=== PATIENT | female | born 1980 | race Two or more races ===

== ENCOUNTER 2017-07-17 08:50 | Emergency (ER) | payer SELFPAY ==
[~2017-07-17] VITALS: Ht 170.2 cm; Wt 72.6 kg
[2017-07-17 09:27] LABS: BILIRUBIN,URINE NEGATIVE (NEG); GLUCOSE,URINE NEGATIVE (NEG); NITRITE,URINE NEGATIVE (NEG); PH,URINE 5.5; PROTEIN,URINE NEGATIVE (NEG-TRACE); UROBILINOGEN,URINE 0.2 mg/dL (0.2 mg/dL)
[2017-07-17 09:34] LABS: SQUAMOUS EPITHELIAL CELL,UR MANY /LPF
[2017-07-17 09:36] LABS: BACTERIA,URINE MODERATE /HPF (0-FEW); RBC,URINE 0 /HPF (0-2)
[2017-07-17 09:37] LABS: NEG OBC UR NEG; POS OBC UR POS
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
--- NOTE | 2017-07-17 09:58 | RAD ---
Indication pelvic pain and cramping. Early obstetrical ultrasound examination was performed. No prior imaging is available. The uterus measures approximately 14 x 9 x 9 cm. There is a viable IUP. The crown-rump length of 5.1 cm is compatible with a gestational age of approximately 11 weeks 5 days. By sonographic analysis the expected date of confinement is 01/30/2013. A heart rate of 152 was documented. The placenta is positioned predominantly anterior. The cervical length is unremarkable at approximately 4.2 cm. The ovaries appeared normal. IMPRESSION: Single viable intrauterine fetus of approximately 11 weeks 5 days gestation
[2017-07-17 10:24] LABS: CALCIUM 8.4 mg/dL (8.5-10.1); CREATININE 0.7 mg/dL (0.6-1.0); GFR 95.2; POTASSIUM 3.9 mmol/L (3.5-5.1)
[2017-07-17 10:29] LABS: BASO % 0 % (0-3); EOS % 1 % (0-3); HEMATOCRIT 34.1 % (36.0-47.0); HEMOGLOBIN 11.8 g/dL (12.0-15.5); LYMPH # 1.9 x10^3/uL (1.0-4.8); LYMPH % 18 % (24-48); MEAN CORPUSCULAR HEMOGLOBIN 32 pg (25-35); MEAN CORPUSCULAR HGB CONC 35 g/dL (31-37); MEAN CORPUSCULAR VOLUME 92 fL (79-100); MONO % 6 % (0-9); NEUT % 75 % (31-73); PLATELET COUNT 215 x10^3/uL (140-400); RED BLOOD COUNT 3.69 x10^6/uL (3.50-5.40); RED CELL DISTRIBUTION WIDTH 13.3 % (11.5-14.5); WHITE BLOOD COUNT 10.3 x10^3/uL (4.0-11.0)
[2017-07-17 10:30] LABS: ALBUMIN 2.8 g/dL (3.4-5.0); ALBUMIN/GLOBULIN RATIO 0.8 (1.0-1.7); TOTAL BILIRUBIN 0.3 mg/dL (0.2-1.0); TOTAL PROTEIN 6.4 g/dL (6.4-8.2)
[2017-07-17] MEDS ORDERED: CEPH500T PO (11:39)
[2017-07-17 11:40] VITALS: BP 116/69
== END 2017-07-17 11:47 | disposition home or self-care (01) ==
LOC: ER 08:50
DX: O23.41 Unspecified infection of urinary tract in pregnancy, first trimester (principal); O16.1 Unspecified maternal hypertension, first trimester; Z3A.11 11 weeks gestation of pregnancy; V43.52XA Car driver injured in collision with other type car in traffic accident, initial encounter; Y93.I9 Activity, other involving external motion; Y92.410 Unspecified street and highway as the place of occurrence of the external cause; Y99.8 Other external cause status
CPT/HCPCS: 36415; 76801; 80053; 81001; 81025; 83690; 84702; 85025; 86850; 86900; 86901; 87086; 87491; 87591; 99285; Q0111

== ENCOUNTER 2019-09-27 17:41 | Emergency (ER) | payer SELFPAY ==
[~2019-09-27] VITALS: Ht 170.2 cm; Wt 72.6 kg
[~2019-09-27 17:41] MED LIST: CEPH500T PO
[2019-09-27] MEDS ORDERED: ASPIRIN CHEWABLE 81 MG TABLET. PO ONE (18:00)
[2019-09-27 18:04] LABS: BASO % 0 % (0-3); EOS % 0 % (0-3); HEMATOCRIT 40.6 % (36.0-47.0); HEMOGLOBIN 13.3 g/dL (12.0-15.5); LYMPH % 17 % (24-48); MEAN CORPUSCULAR HEMOGLOBIN 28 pg (25-35); MEAN CORPUSCULAR HGB CONC 33 g/dL (31-37); MEAN CORPUSCULAR VOLUME 85 fL (79-100); MONO # 0.5 x10^3/uL (0.0-1.1); MONO % 5 % (0-9); NEUT # 9.4 x10^3/uL (1.8-7.7); NEUT % 79 % (31-73); PLATELET COUNT 340 x10^3/uL (140-400); RED BLOOD COUNT 4.76 x10^6/uL (3.50-5.40); RED CELL DISTRIBUTION WIDTH 14.5 % (11.5-14.5); WHITE BLOOD COUNT 11.9 x10^3/uL (4.0-11.0)
--- NOTE | 2019-09-27 18:04 | PHYS DOC ---
Past Medical History Past Medical History: Hypertension (LOCO MCGUIRE) Past Surgical History: Other Additional Past Surgical Histo: D&C, lap band (LOCO MCGUIRE) Alcohol Use: None Drug Use: None (LOCO MCGUIRE) Attending Signature I have participated in the care of this patient and I have reviewed and agree with all pertinent clinical information above including history, exam, and recommendations. (TOMEKA GIL MD) Adult General Chief Complaint Chief Complaint: CHEST PAIN HPI HPI Patient is a 39 year old F who reports early this morning she noticed L sided chest pain that seemed to resolve and then it came back around lunchtime. The pain is upper left chest and into her L neck. Pt is hyperventilating on arrival. She states she has mild SOB and nausea. Pt denies any history of CAD and denies PE/DVT hx. She does report a long road trip to [place] on . She has no other risk factors. Pt does have hx of HTN and is noted to be hypertensive on arrival. She reports she has been compliant with her home BP medication. Pt is also noted to be very anxious and is hyperventilating. She reports feeling tingly all over and discussed with her to slow down her breathing. (LOCO MCGUIRE) Review of Systems Review of Systems Constitutional: Denies fever or chills HENT: Denies nasal congestion or sore throat Respiratory: Denies cough. Reports SOB Cardiovascular: Reports chest pain GI: Denies abdominal pain, vomiting, bloody stools or diarrhea. Reports nausea. Musculoskeletal: Denies back pain or joint pain Integument: Denies rash or skin lesions Neurologic: Denies headache, focal weakness. Reports tingling all over. All other systems were reviewed and found to be within normal limits, except as documented in this note. (LOCO MCGUIRE) Current Medications Current Medications Current Medications Medications (Trade) Dose Ordered Sig/Shadia Start Time Stop Time Status Last Admin Dose Admin Aspirin (Children'S Aspirin) 324 mg 1X ONCE 09/27/19 18:00 09/27/19 18:06 DC 09/27/19 18:05 324 MG Ketorolac Tromethamine (Toradol 30mg Vial) 30 mg 1X ONCE 09/27/19 19:45 09/27/19 19:48 DC 09/27/19 19:50 30 MG Lorazepam (Ativan Inj) 0.5 mg 1X ONCE 09/27/19 19:45 09/27/19 19:48 DC 09/27/19 19:51 0.5 MG Ondansetron HCl (Zofran) 4 mg 1X ONCE 09/27/19 19:00 09/27/19 19:01 DC 09/27/19 19:00 4 MG (TOMEKA GIL MD) Allergies Allergies Allergies Coded Allergies Type Severity Reaction Last Updated Verified No Known Drug Allergies 07/17/17 No (TOMEKA GIL MD) Physical Exam Physical Exam Constitutional: Well developed, well nourished, no acute distress. Appears anxious and uncomfortable. HENT: Normocephalic, atraumatic, bilateral external ears normal, oropharynx moist, no oral exudate Neck: Normal range of motion, no tenderness, supple, no stridor. Cardiovascular:Heart rate regular rhythm, no murmur Lungs & Thorax: Bilateral breath sounds clear to auscultation Abdomen: Bowel sounds normal, soft, no tenderness, no masses, no pulsatile masses. Skin: Warm, dry, no erythema, no rash. Back: No tenderness, no CVA tenderness. Extremities: No tenderness, no cyanosis, no clubbing, ROM intact, no edema. Neurologic: Alert and oriented X 3, normal motor function, normal sensory function, no focal deficits noted. Psychologic: Affect normal, anxious, hyperventilating during exam (LOCO MCGUIRE) Current Patient Data Vital Signs Vital Signs Date Time Temp Pulse Resp B/P (MAP) Pulse Ox O2 Delivery O2 Flow Rate FiO2 09/27/19 21:02 72 14 143/93 (110) 98 Room Air 09/27/19 17:45 97.8 97.8 (TOMEKA GIL MD) Lab Values Laboratory Tests Test 09/27/19 17:50 09/27/19 18:29 White Blood Count 11.9 x10^3/uL (4.0-11.0) H Red Blood Count 4.76 x10^6/uL (3.50-5.40) Hemoglobin 13.3 g/dL (12.0-15.5) Hematocrit 40.6 % (36.0-47.0) Mean Corpuscular Volume 85 fL (79-100) Mean Corpuscular Hemoglobin 28 pg (25-35) Mean Corpuscular Hemoglobin Concent 33 g/dL (31-37) Red Cell Distribution Width 14.5 % (11.5-14.5) Platelet Count 340 x10^3/uL (140-400) Neutrophils (%) (Auto) 79 % (31-73) H Lymphocytes (%) (Auto) 17 % (24-48) L Monocytes (%) (Auto) 5 % (0-9) Eosinophils (%) (Auto) 0 % (0-3) Basophils (%) (Auto) 0 % (0-3) Neutrophils # (Auto) 9.4 x10^3/uL (1.8-7.7) H Lymphocytes # (Auto) 2.0 x10^3/uL (1.0-4.8) Monocytes # (Auto) 0.5 x10^3/uL (0.0-1.1) Eosinophils # (Auto) 0.0 x10^3/uL (0.0-0.7) Basophils # (Auto) 0.0 x10^3/uL (0.0-0.2) Prothrombin Time 12.8 SEC (11.7-14.0) Prothrombin Time INR 1.0 (0.8-1.1) D-Dimer (Claudia) 0.29 ug/mlFEU (0.00-0.50) Urine Collection Type Unknown Urine Color Yellow Urine Clarity Clear Urine pH 7.5 Urine Specific [place] 1.010 Urine Protein Negative mg/dL (NEG-TRACE) Urine Glucose (UA) Negative mg/dL (NEG) Urine Ketones (Stick) Negative mg/dL (NEG) Urine Blood Negative (NEG) Urine Nitrite Negative (NEG) Urine Bilirubin Negative (NEG) Urine Urobilinogen Dipstick 0.2 mg/dL (0.2 mg/dL) Urine Leukocyte Esterase Negative (NEG) Urine RBC 0 /HPF (0-2) Urine WBC Rare /HPF (0-4) Urine Squamous Epithelial Cells Occ /LPF Urine Bacteria Few /HPF (0-FEW) Sodium Level 135 mmol/L (136-145) L Potassium Level 3.7 mmol/L (3.5-5.1) Chloride Level 96 mmol/L (98-107) L Carbon Dioxide Level 23 mmol/L (21-32) Anion Gap 16 (6-14) H Blood Urea Nitrogen 9 mg/dL (7-20) Creatinine 1.0 mg/dL (0.6-1.0) Estimated GFR (Cockcroft-Gault) 62.4 BUN/Creatinine Ratio 9 (6-20) Glucose Level 137 mg/dL (70-99) H Calcium Level 9.7 mg/dL (8.5-10.1) Magnesium Level 2.0 mg/dL (1.8-2.4) Total Bilirubin 0.4 mg/dL (0.2-1.0) Aspartate Amino Transferase (AST) 18 U/L (15-37) Alanine Aminotransferase (ALT) 12 U/L (14-59) L Alkaline Phosphatase 81 U/L (46-116) Creatine Kinase 82 U/L (26-192) Creatine Kinase MB (Mass) 1.0 ng/mL (0.0-3.6) Creatine Kinase MB Relative Index 1.2 % (0-4) Troponin I Quantitative < 0.017 ng/mL (0.000-0.055) TO-Jly-[id number]-Type Natriuretic Peptide 251 pg/mL (0-124) H Total Protein 8.8 g/dL (6.4-8.2) H Albumin 4.2 g/dL (3.4-5.0) Albumin/Globulin Ratio 0.9 (1.0-1.7) L Lipase 224 U/L (73-393) POC Urine HCG, Qualitative Hcg negative (Negative) Laboratory Tests 09/27/19 17:50 Laboratory Tests 09/27/19 17:50 (TOMEKA GIL MD) Lab Values Laboratory Tests Test 09/27/19 17:50 09/27/19 18:29 White Blood Count 11.9 x10^3/uL (4.0-11.0) H Red Blood Count 4.76 x10^6/uL (3.50-5.40) Hemoglobin 13.3 g/dL (12.0-15.5) Hematocrit 40.6 % (36.0-47.0) Mean Corpuscular Volume 85 fL (79-100) Mean Corpuscular Hemoglobin 28 pg (25-35) Mean Corpuscular Hemoglobin Concent 33 g/dL (31-37) Red Cell Distribution Width 14.5 % (11.5-14.5) Platelet Count 340 x10^3/uL (140-400) Neutrophils (%) (Auto) 79 % (31-73) H Lymphocytes (%) (Auto) 17 % (24-48) L Monocytes (%) (Auto) 5 % (0-9) Eosinophils (%) (Auto) 0 % (0-3) Basophils (%) (Auto) 0 % (0-3) Neutrophils # (Auto) 9.4 x10^3/uL (1.8-7.7) H Lymphocytes # (Auto) 2.0 x10^3/uL (1.0-4.8) Monocytes # (Auto) 0.5 x10^3/uL (0.0-1.1) Eosinophils # (Auto) 0.0 x10^3/uL (0.0-0.7) Basophils # (Auto) 0.0 x10^3/uL (0.0-0.2) Prothrombin Time 12.8 SEC (11.7-14.0) Prothrombin Time INR 1.0 (0.8-1.1) D-Dimer (Claudia) 0.29 ug/mlFEU (0.00-0.50) Urine Collection Type Unknown Urine Color Yellow Urine Clarity Clear Urine pH 7.5 Urine Specific [place] 1.010 Urine Protein Negative mg/dL (NEG-TRACE) Urine Glucose (UA) Negative mg/dL (NEG) Urine Ketones (Stick) Negative mg/dL (NEG) Urine Blood Negative (NEG) Urine Nitrite Negative (NEG) Urine Bilirubin Negative (NEG) Urine Urobilinogen Dipstick 0.2 mg/dL (0.2 mg/dL) Urine Leukocyte Esterase Negative (NEG) Urine RBC 0 /HPF (0-2) Urine WBC Rare /HPF (0-4) Urine Squamous Epithelial Cells Occ /LPF Urine Bacteria Few /HPF (0-FEW) Sodium Level 135 mmol/L (136-145) L Potassium Level 3.7 mmol/L (3.5-5.1) Chloride Level 96 mmol/L (98-107) L Carbon Dioxide Level 23 mmol/L (21-32) Anion Gap 16 (6-14) H Blood Urea Nitrogen 9 mg/dL (7-20) Creatinine 1.0 mg/dL (0.6-1.0) Estimated GFR (Cockcroft-Gault) 62.4 BUN/Creatinine Ratio 9 (6-20) Glucose Level 137 mg/dL (70-99) H Calcium Level 9.7 mg/dL (8.5-10.1) Magnesium Level 2.0 mg/dL (1.8-2.4) Total Bilirubin 0.4 mg/dL (0.2-1.0) Aspartate Amino Transferase (AST) 18 U/L (15-37) Alanine Aminotransferase (ALT) 12 U/L (14-59) L Alkaline Phosphatase 81 U/L (46-116) Creatine Kinase 82 U/L (26-192) Creatine Kinase MB (Mass) 1.0 ng/mL (0.0-3.6) Creatine Kinase MB Relative Index 1.2 % (0-4) Troponin I Quantitative < 0.017 ng/mL (0.000-0.055) GL-Xbb-K-Type Natriuretic Peptide 251 pg/mL (0-124) H Total Protein 8.8 g/dL (6.4-8.2) H Albumin 4.2 g/dL (3.4-5.0) Albumin/Globulin Ratio 0.9 (1.0-1.7) L Lipase 224 U/L (73-393) POC Urine HCG, Qualitative Hcg negative (Negative) Laboratory Tests 09/27/19 17:50 Laboratory Tests 09/27/19 17:50 (LOCO MCGUIRE) EKG EKG EKG: NSR, prolonged QT, pulse 97 bpm (LOCO MCGUIRE) Radiology/Procedures Radiology/Procedures [] (LOCO MCGUIRE) Course & Med Decision Making Course & Med Decision Making Pertinent Labs and Imaging studies reviewed. (See chart for details) Pt feeling better while in ER and primarily improved after Ativan. Discussed possible pleurisy or costochondritis. Cardiac tests and DDimer reassuring and this is after 7+ hours of pain. Discussed rest, close f/u with PCP and to return to ER if symptoms worsen at anytime. (LOCO MCGUIRE) Dragon Disclaimer Dragon Disclaimer This electronic medical record was generated, in whole or in part, using a voice recognition dictation system. (LOCO MCGUIRE) Departure Departure Impression: Primary Impression: Chest pain Additional Impressions: Anxiety Pleurisy Disposition: 01 HOME, SELF-CARE Condition: IMPROVED Referrals: NO PCP (PCP) Patient Instructions: Anxiety and Panic Attacks, [id number], Pleurisy, [id number] Additional Instructions: Your blood pressure was elevated today and this should be rechecked when you are feeling better. You should have a close f/u appointment with your doctor for recheck. Return to ER if symptoms worsen at anytime. Scripts Lorazepam (ATIVAN) 0.5 Mg Tablet 0.5 MG PO BID PRN for ANXIETY / AGITATION for 7 Days, #14 TAB Prov: LOCO MCGUIRE 09/27/19 Prednisone (PREDNISONE) 20 Mg Tablet 1 TAB PO BID for 5 Days, #10 TAB Prov: LOCO MCGUIRE 09/27/19 Problem Qualifiers LOCO MCGUIRE Sep 27, 2019 18:04 TOMEKA GIL MD Sep 28, 2019 18:10
[2019-09-27 18:14] LABS: PROTHROMBIN TIME PATIENT 12.8 SEC (11.7-14.0)
[2019-09-27 18:17] LABS: CALCIUM 9.7 mg/dL (8.5-10.1); GFR 62.4; POTASSIUM 3.7 mmol/L (3.5-5.1)
[2019-09-27 18:20] LABS: ALBUMIN 4.2 g/dL (3.4-5.0); ALBUMIN/GLOBULIN RATIO 0.9 (1.0-1.7); TOTAL BILIRUBIN 0.4 mg/dL (0.2-1.0); TOTAL PROTEIN 8.8 g/dL (6.4-8.2)
[2019-09-27 18:39] LABS: BILIRUBIN,URINE NEGATIVE (NEG); CLARITY,URINE CLEAR; COLOR,URINE YELLOW; NITRITE,URINE NEGATIVE (NEG); PH,URINE 7.5; PROTEIN,URINE NEGATIVE (NEG-TRACE); UROBILINOGEN,URINE 0.2 mg/dL (0.2 mg/dL)
[2019-09-27 18:46] LABS: BACTERIA,URINE FEW /HPF (0-FEW); RBC,URINE 0 /HPF (0-2); SQUAMOUS EPITHELIAL CELL,UR OCC /LPF; WBC,URINE RARE /HPF (0-4)
[2019-09-27] MEDS ORDERED: ONDANSETRON PF 4 MG/2 ML VIAL. IVP ONE (19:00)
[2019-09-27] MEDS ORDERED: KETOROLAC 30 MG/ML VIAL. IVP ONE (19:45)
[2019-09-27] MEDS ORDERED: LORA0.5T96 PO (20:49)
[2019-09-27] MEDS ORDERED: PRED20TA PO (20:49)
[2019-09-27 21:02] VITALS: BP 143/93
--- NOTE | 2019-09-27 23:27 | RAD ---
Study: CHEST PA LATERAL Indication: Chest pain. Comparison: None. Findings: The cardiomediastinal silhouette and burt are within normal limits. No pneumothorax, pleural effusion or lobar infiltrate. No free air seen under the diaphragm. The adequately assessed vertebral bodies maintain normal height on the lateral view. Impression: No acute radiographic abnormality of the chest. Electronically signed by: DEBORAH FIELD MD (09/27/2019 11:24 PM) [id number]
--- NOTE | 2019-09-29 06:14 | EKG ---
[facility] [address] [place] [address] Test Date: 2019-09-27 Test Time: 17:47:45 Pat Name: SUGAR CONTRERAS Department: Room: Gender: F Certified Massage Therapist: : 1980 Requested By: LOCO MCGUIRE Order Number: [id number] Reading MD: Measurements Intervals [place] Rate: 97 P: 42 DC: 140 QRS: -5 QRSD: 96 T: 63 QT: 390 QTc: 500 Interpretive Statements SINUS RHYTHM LEFTWARD AXIS T ABNORMALITY IN HIGH LATERAL LEADS PROLONGED QT ABNORMAL ECG No previous ECG available for comparison
== END 2019-09-27 21:06 | disposition home or self-care (01) ==
LOC: ER 17:41
DX: R07.89 Other chest pain (principal); F41.9 Anxiety disorder, unspecified; R09.1 Pleurisy; I10 Essential (primary) hypertension; Z98.890 Other specified postprocedural states; Z79.82 Long term (current) use of aspirin
CPT/HCPCS: 36415; 71046; 80053; 81001; 81025; 82553; 83690; 83735; 83880; 84484; 85025; 85379; 85610; 93005; 96374; 96375; 99285; J1885; J2060; J2405

== ENCOUNTER 2021-12-01 06:42 | Emergency (ER) | payer OTHER ==
[~2021-12-01] VITALS: Ht 170.2 cm; Wt 79.7 kg
[~2021-12-01 06:42] MED LIST changes: +LORA0.5T96 PO; +PRED20TA PO
[2021-12-01] MEDS ORDERED: ACETAMINOPHEN 500 MG TABLET PO ONE (07:30)
--- NOTE | 2021-12-01 07:59 | PHYS DOC ---
Past Medical History Past Medical History: Hypertension Past Surgical History: No Surgical History Additional Past Surgical Histo: D&C, lap band Smoking Status: Never Smoker Alcohol Use: None Drug Use: None General Adult EDM: Chief Complaint: HEADACHE HPI: HPI: Patient is a 41 year old female who present to ER for evaluation of headache that started 1 AM this morning. Patient described the pain as throbbing pain in the back of her head. Patient denies any nausea vomiting. Patient denies any history of headache in the past. Patient denies any injury. Patient denies any fever, no neck pain. Patient denies any blurry vision, no neurological deficit anywhere. Patient said nothing make the headache worse or better. Review of Systems: Review of Systems: Constitutional: Denies fever or chills. [] Eyes: Denies change in visual acuity. [] HENT: Denies nasal congestion or sore throat. [] Respiratory: Denies cough or shortness of breath. [] Cardiovascular: Denies chest pain or edema. [] GI: Denies abdominal pain, nausea, vomiting, bloody stools or diarrhea. [] : Denies dysuria. [] Musculoskeletal: Denies back pain or joint pain. [] Integument: Denies rash. [] Neurologic: Positive for headache, no focal weakness or sensory changes Endocrine: Denies polyuria or polydipsia. [] Lymphatic: Denies swollen glands. [] Psychiatric: Denies depression or anxiety. [] Heart Score: C/O Chest Pain: N/A Risk Factors: Risk Factors: DM, Current or recent (<one month) smoker, HTN, HLP, family history of CAD, obesity. Risk Scores: Score 0 - 3: 2.5% MACE over next 6 weeks - Discharge Home Score 4 - 6: 20.3% MACE over next 6 weeks - Admit for Clinical Observation Score 7 - 10: 72.7% MACE over next 6 weeks - Early Invasive Strategies Current Medications: Current Medications Medications (Trade) Dose Ordered Sig/Shadia Start Time Stop Time Status Last Admin Dose Admin Acetaminophen (Tylenol) 1,000 mg 1X ONCE 12/01/21 07:30 12/01/21 07:31 DC 12/01/21 07:35 1,000 MG Allergies: Allergies: Allergies Coded Allergies Type Severity Reaction Last Updated Verified No Known Drug Allergies 12/01/21 No Physical Exam: PE: Constitutional: Well developed, well nourished, no acute distress, non-toxic appearance. [] HENT: Normocephalic, atraumatic, bilateral external ears normal, oropharynx moist, no oral exudates, nose normal. [] Eyes: PERRLA, EOMI, conjunctiva normal, no discharge. [] Neck: Normal range of motion, no tenderness, supple, no stridor. [] Cardiovascular:Heart rate regular rhythm, no murmur [] Lungs & Thorax: Bilateral breath sounds clear to auscultation [] Abdomen: Bowel sounds normal, soft, no tenderness, no masses, no pulsatile masses. [] Skin: Warm, dry, no erythema, no rash. [] Back: No tenderness, no CVA tenderness. [] Extremities: No tenderness, no cyanosis, no clubbing, ROM intact, no edema. [] Neurologic: Alert and oriented X 3, normal motor function, normal sensory function, no focal deficits noted. [] Psychologic: Affect normal, judgement normal, mood normal. [] Current Patient Data: Vital Signs: Vital Signs Date Time Temp Pulse Resp B/P (MAP) Pulse Ox O2 Delivery O2 Flow Rate FiO2 12/01/21 06:57 98.3 69 14 119/87 (98) 97 98.3 EKG: EKG: [] Radiology/Procedures: Radiology/Procedures: [][facility] [address] [place] [address] IMAGING REPORT Signed PATIENT: SUGAR CONTRERAS ACCOUNT: [id number] : 1980 LOCATION: ER AGE: 41 SEX: F EXAM STATUS: REG ER ORD. PHYSICIAN: JONATHAN FOX DO REASON: headache started at 1 am PROCEDURE: CT HEAD WO CONTRAST STUDY: CT head without contrast INDICATION: Headache. COMPARISON: None. TECHNIQUE: Axial CT imaging through the head without the use of intravenous contrast. Sagittal and coronal reformats were obtained. One or more of the following individualized dose reduction techniques were utilized for this examination: 1. Automated exposure control 2. Adjustment of the mA and/or kV according to patient size 3. Use of iterative reconstruction technique. FINDINGS: No acute intracranial hemorrhage. No mass effect, midline shift or hydrocephalus. Greenwood-white matter differentiation is maintained. Unremarkable calvarium. No layering fluid seen within the visualized paranasal sinuses. Well aerated mastoid air cells and middle ears. IMPRESSION: No acute intracranial abnormality by CT. Electronically signed by: DEBORAH FIELD MD (12/01/2021 8:03 AM) [id number] DICTATED and SIGNED BY: DEBORAH FIELD MD DATE: 12/01/21 [id number] 0 Course & Med Decision Making: Course & Med Decision Making Pertinent Labs and Imaging studies reviewed. (See chart for details) Patient is a 41-year-old female who present to ER for evaluation of headache. Patient had no fever, her blood pressure was normal, patient neck is supple, no evidence of meningitis. CT scan of the head did not show any acute problem. Patient was in no acute distress. I will discharge patient home with some naproxen to take as needed for pain control. Patient will need to follow-up with her family physician for reevaluation. Patient is amenable to plan of care. Dragon Disclaimer: Dragon Disclaimer: This electronic medical record was generated, in whole or in part, using a voice recognition dictation system. Departure Departure Impression: Primary Impression: Headache Disposition: 01 HOME / SELF CARE / HOMELESS Condition: IMPROVED Referrals: NO PCP (PCP) follow up with your doctor as needed next week Patient Instructions: General Headache Without Cause Additional Instructions: Thank you for visiting our Emergency Department. We appreciate you trusting us with your care. If any additional problems come up don't hesitate to return to visit us. Please follow up with your primary care provider so they can plan ad ditional care if needed and know about the problem that you had. If symptoms worsen come back to the Emergency Department. Any concerning symptoms that start such as chest pain, shortness of air, weakness or numbness on one side of the body, running high fevers or any other concerning symptoms return to the ER. Scripts Naproxen Sodium (ANAPROX DS) 550 Mg Tablet 1 TAB PO BID PRN for HEADACHE for 15 Days, #30 TAB 0 Refills Prov: JONATHAN FOX DO 12/01/21 JONATHAN FOX DO Dec 01, 2021 07:59
--- NOTE | 2021-12-01 08:05 | RAD ---
STUDY: CT head without contrast INDICATION: Headache. COMPARISON: None. TECHNIQUE: Axial CT imaging through the head without the use of intravenous contrast. Sagittal and co alicia reformats were obtained. One or more of the following individualized dose reduction techniques were utilized for this examinat ion: 1. Automated exposure control 2. Adjustment of the mA and/or kV according to patient size 3. Use of iterative reconstruction technique. FINDINGS: No acute intracranial hemorrhage. No mass effect, midline shift or hydrocephalus. Greenwood-white matter d ifferentiation is maintained. Unremarkable calvarium. No layering fluid seen within the visualized paranasal sinuses. Well aerated mastoid air cells and middle ears. IMPRESSION: No acute intracranial abnormality by CT. Electronically signed by: DEBORAH FIELD MD (12/01/2021 8:03 AM) [id number]
[2021-12-01] MEDS ORDERED: NAPR-682 PO (09:37)
[2021-12-01 09:52] VITALS: BP 115/69
== END 2021-12-01 09:55 | disposition home or self-care (01) ==
LOC: ER 06:42
DX: R51.9 Headache, unspecified (principal); I10 Essential (primary) hypertension
CPT/HCPCS: 70450; 99285-25